=== PATIENT | male | born 1990 | race African-American/Black ===

== ENCOUNTER 2024-05-05 23:17 | Emergency (ER) | payer MEDICAID ==
[~2024-05-05] VITALS: Ht 180.3 cm; Wt 65.2 kg
[~2024-05-05 23:17] MED LIST: ALBU18HF2 IH; AZIT500T8 MT; METH4TAB95 MT
[2024-05-05 23:20] VITALS: PULSE 102; O2SAT 95
[2024-05-05 23:21] VITALS: BP 105/74; RESP 18; TEMP 97.7; O2SAT 100
== END 2024-05-06 00:15 | disposition left against medical advice (07) ==
LOC: ER 23:17
DX: Z00.00 Encounter for general adult medical examination without abnormal findings (principal); Z53.21 Procedure and treatment not carried out due to patient leaving prior to being seen by health care provider

== ENCOUNTER 2024-07-31 19:10 | Emergency (ER) | payer MEDICAID ==
[~2024-07-31] VITALS: Ht 180.3 cm; Wt 66.0 kg
[2024-07-31 19:15] VITALS: O2SAT 99
[2024-07-31 19:23] VITALS: BP 112/79; PULSE 114; RESP 20; TEMP 98.4; O2SAT 99
== END 2024-07-31 20:08 | disposition home or self-care (01) ==
LOC: ER 19:10
DX: S91.052A Open bite, left ankle, initial encounter (principal); W57.XXXA Bitten or stung by nonvenomous insect and other nonvenomous arthropods, initial encounter; Y93.89 Activity, other specified; Y92.89 Other specified places as the place of occurrence of the external cause; Y99.8 Other external cause status
CPT/HCPCS: 99282; Z7610; 99281; A4606